=== PATIENT | male | born 1980 | race Two or more races ===

== ENCOUNTER 2017-07-17 23:54 | Emergency (ER) | payer SELFPAY ==
[~2017-07-17] VITALS: Ht 177.8 cm; Wt 95.3 kg
[2017-07-18 00:35] LABS: Urine WBC None Seen /hpf (0 - 3)
[2017-07-18 00:39] LABS: Urine Bacteria NONE SEEN /hpf (None Seen); Urine Blood Negative /uL (Negative); Urine Mucus FEW (None Seen)
[2017-07-18 00:51] LABS: Basophils # (auto) 0 uL; Basophils % (auto) 0.4 % (0.0-2.0); Eosinophils # (auto) 0.1 uL; Hematocrit 42.1 % (41.0-53.0); Hemoglobin 14.1 g/dL (13.5-17.5); Lymphocytes # (auto) 1.8 uL; Lymphocytes % (auto) 18.4 % (10.0-50.0); Mean Corpuscular Hemoglobin 29.3 pg (28.0-32.0); Mean Corpuscular Hgb Conc. 33.4 g/dL (32.0-36.0); Mean Corpuscular Volume 87.7 fL (80.0-100.0); Monocytes # (auto) 0.4 uL; Monocytes % (auto) 4.4 % (0.0-12.0); Neutrophils # (auto) 7.5 uL; Neutrophils % (auto) 75.8 % (37.0-80.0); Platelet Count (auto) 265 10^3/uL (140-450); Red Cell Distribution Width 12.9 % (11.8-14.3); White Blood Cell 9.9 10^3/uL (4.4-10.8)
[2017-07-18 01:09] LABS: INR 0.96 (0.9-1.15); Partial Thromboplastin Time 25.7 sec (22.64-33.71); Prothrombin Time 10.5 sec (9.37-12.3)
[2017-07-18 01:15] LABS: Albumin 4.1 g/dL (3.4-5.0); BUN/Creatinine Ratio 13.3; Bilirubin, Total 0.4 mg/dL (0.2-1.0); Calcium 8.8 mg/dL (8.5-10.1); Total Protein 8.5 g/dL (6.4-8.2)
[2017-07-18 03:59] VITALS: BP 142/78
== END 2017-07-18 03:49 | disposition home or self-care (01) ==
LOC: EDBD 23:54 → ER 07-18 00:01
DX: R10.9 Unspecified abdominal pain (principal)
CPT/HCPCS: 36415; 74176; 80053; 81001; 82150; 83690; 85025; 85610; 85730